=== PATIENT | male | born 1960 ===

== ENCOUNTER 2022-07-23 05:00 | Day surgery (SDC) | payer OTHER ==
[~2022-07-23] VITALS: Ht 165.1 cm; Wt 74.8 kg
[~2022-07-23 05:00] MED LIST: SIMVASTATIN40 MG PO
[2022-07-23] MEDS ORDERED: ULTRACET PO (08:45)
[2022-07-23] MEDS ORDERED: DUI500 PO (08:45)
== END 2022-07-23 13:10 | disposition home or self-care (01) ==
LOC: CIR.AMB 05:00
PROVIDERS: ATTEND Orthopaedic Surgery Sports Medicine
DX: S83.241A Other tear of medial meniscus, current injury, right knee, initial encounter (principal); S83.281A Other tear of lateral meniscus, current injury, right knee, initial encounter; X58.XXXA Exposure to other specified factors, initial encounter; Y93.9 Activity, unspecified; Y92.9 Unspecified place or not applicable; Z20.822 Contact with and (suspected) exposure to COVID-19; E78.5 Hyperlipidemia, unspecified; F17.210 Nicotine dependence, cigarettes, uncomplicated